=== PATIENT | male | born 2000 | race Asian ===

== ENCOUNTER 2018-07-31 02:05 | Emergency (ER) | payer OTHER ==
[2018-07-31 02:11] VITALS: BP 118/63
--- NOTE | 2018-07-31 02:35 | ED ---
Adult Trauma - HPI Summary HPI Summary: This patient is a 18 year old M presenting to [facility] with a chief complaint of a fall from a ladder to a loft bed at 00:30. The patient rates the pain 6/10 in severity. Patient reports left wrist pain, left forearm pain, and right auxiliary area abrasion. Patient denies head pain. Patient drank alcohol tonight. - History of Current Complaint Chief Complaint: EDExtremityUpper Stated Complaint: FALL, LEFT ARM PAIN Time Seen by Provider: 07/31/18 02:22 Hx Obtained From: Patient Mechanism of Injury: Fall Ambulatory at the Scene: Yes Loss of Consciousness: no loss of consciousness Onset of Pain: Immediate, Post Accident Onset Severity: Moderate Current Severity: Moderate Pain Intensity: 6 Pain Scale Used: 0-10 Numeric Location: Extremities - left wrist pain, left forearm pain, right auxiliary abrasion Associated Signs & Symptoms: Positive: Other: - left wrist pain, left forearm pain, and right auxiliary area abrasion - Allergy/Home Medications Allergies/Adverse Reactions: Allergies Allergy/AdvReac Type Severity Reaction Status Date / Time No Known Allergies Allergy Verified 07/31/18 02:11 PMH/Surg Hx/FS Hx/Imm Hx Endocrine/Hematology History: Denies: Hx Diabetes Cardiovascular History: Denies: Hx Congenital Heart Disease Respiratory History: Denies: Hx Asthma Infectious Disease History: No Infectious Disease History: Denies: Traveled Outside the [place] in Last 30 Days - Family History Known Family History: Negative: Cardiac Disease, Hypertension, Diabetes - Social History Occupation: Student Alcohol Use: Rare Hx Substance Use: No Substance Use Type: Reports: None Review of Systems Positive: Other - Left wrist pain, left forearm pain Positive: Other - Right auxiliary area abrasion Negative: Headache - Denies head pain All Other Systems Reviewed And Are Negative: Yes Physical Exam - Summary Physical Exam Summary: VITAL SIGNS: Reviewed. GENERAL: Patient is a well-developed and nourished MALE who is lying comfortable in the stretcher. Patient is not in any acute respiratory distress. HEAD AND FACE: No signs of trauma. No ecchymosis, hematomas or skull depressions. No sinus tenderness. EYES: PERRLA, EOMI x 2, No injected conjunctiva, no nystagmus. EARS: Hearing grossly intact. Ear canals and tympanic membranes are within normal limits. MOUTH: Oropharynx within normal limits. NECK: Supple, trachea is midline, no adenopathy, no JVD, no carotid bruit, no c- spine tenderness, neck with full ROM. CHEST: Symmetric, no tenderness at palpation. Mild abrasion of R side chest. LUNGS: Clear to auscultation bilaterally. No wheezing or crackles. CVS: Regular rate and rhythm, S1 and S2 present, no murmurs or gallops appreciated. Good radial pulses, good ulnar pulses, and good brachial pulses. ABDOMEN: Soft, non-tender. No signs of distention. No rebound no guarding, and no masses palpated. Bowel sounds are normal. EXTREMITIES: FROM in all major joints. Left forearm is tender and mildly swollen. NEURO: Alert and oriented x 3. No acute neurological deficits. Speech is normal and follows commands. SKIN: Dry and warm Triage Information Reviewed: Yes Vital Signs On Initial Exam: Initial Vitals Temp Pulse Resp BP Pulse Ox 97.9 F 88 16 118/63 100 07/31/18 02:05 07/31/18 02:05 07/31/18 02:05 07/31/18 02:05 07/31/18 02:05 Vital Signs Reviewed: Yes Diagnostics - Vital Signs Vital Signs Temp Pulse Resp BP Pulse Ox 07/31/18 02:05 97.9 F 88 16 118/63 100 - Laboratory Lab Statement: Any lab studies that have been ordered have been reviewed, and results considered in the medical decision making process. - Radiology Left forearm X-Ray Radiology Interpretation Completed By: ED Physician - Read 03:07. No fracture. Pending official report. Adult Trauma Course/Dx - Course Assessment/Plan: This patient is a 18 year old M presenting to [facility] with a chief complaint of a fall from a ladder to a loft bed at 00:30. The patient rates the pain 6/10 in severity. Patient reports left wrist pain, left forearm pain, and right auxiliary area abrasion. Patient denies head pain. Patient drank alcohol tonight. Left forearm x-ray revealed no fraction. Patient refused chest x-ray. Patient will be discharged home with dx of contusions. - Diagnoses Differential Diagnosis/HQI/PQRI: Positive: Contusion(s), Fracture Provider Diagnoses: Contusion Discharge - Sign-Out/Discharge Documenting (check all that apply): Patient Departure - D/C - Discharge Plan Condition: Stable Disposition: HOME Patient Education Materials: Contusion in Adults (ED) Referrals: No Primary Care Phys,NOPCP [Primary Care Provider] - Additional Instructions: RETURN TO THE EMERGENCY DEPARTMENT FOR CHANGING OR WORSENING SYMPTOMS. FOLLOW UP WITH PCP IN 1-2 DAYS. - Attestation Statements Document Initiated by Scribe: Yes Documenting Scribe: Luiz So Provider For Whom Scribe is Documenting (Include Credential): Derick Rodgers MD Scribe Attestation: ILuiz, scribed for Derick Rodgers MD on 07/31/18 at 0313.
--- NOTE | 2018-07-31 07:44 | RAD ---
HISTORY: fall, distal left forearm pain COMPARISONS: None VIEWS: 2 , Frontal and lateral views of the left forearm FINDINGS: BONE DENSITY: Normal. BONES: There is no displaced fracture. JOINTS: There is no arthropathy. ALIGNMENT: There is no dislocation. SOFT TISSUES: Unremarkable. OTHER FINDINGS: None. IMPRESSION: NO ACUTE OSSEOUS INJURY. IF SYMPTOMS PERSIST, RECOMMEND REPEAT IMAGING. R0
== END 2018-07-31 03:22 | disposition home or self-care (01) ==
LOC: ED 02:05
DX: S60.212A Contusion of left wrist, initial encounter (principal); S50.12XA Contusion of left forearm, initial encounter; S20.20XA Contusion of thorax, unspecified, initial encounter; W11.XXXA Fall on and from ladder, initial encounter; Y92.9 Unspecified place or not applicable
CPT/HCPCS: 99282